=== PATIENT | male | born 2000 | race Caucasian/White ===

== ENCOUNTER 2025-07-06 18:33 | Emergency (ER) | payer OTHER, SELFPAY ==
[2025-07-06 18:52] VITALS: BP 175/67; PULSE 118; RESP 20; TEMP 37.7; O2SAT 95; BMI 37.9
--- NOTE | 2025-07-06 19:00 | ED_ITS ---
HPI - General Adult General Chief complaint: Nausea/Vomiting/Diarrhea Stated complaint: abdn pain, vomiting feverish Time Seen by Provider: 07/06/25 21:41 Source: patient Mode of arrival: ambulatory Limitations: no limitations History of Present Illness ED Provider: Dr. Ellie Voss HPI narrative: Patient comes to the emergency room complaining of chills, subjective fever, nausea vomiting, Headache, mild abdominal discomfort, and diffuse arthralgias and myalgias. Patient states that his symptoms started a proximally 2-3 days ago, gradually getting worse. Related Data Previous Rx's ?Medication ?Instructions ?Recorded ibuprofen 600 mg tablet 600 mg PO TID PRN fever or p ain 07/06/25 #30 tabs Allergies Allergy/AdvReac Type Severity Reaction Status Date / Time No Known Allergies Allergy Verified 07/06/25 18:55 Review of Systems 2 Review of Systems: Constitutional : No Weight loss, complaining of fever and chills,No Night Sweats, complaining of fatigue and generalized malaise ENT/Mouth : No Hearing loss, No Ear Pain, No Nasal Congestion, No Sinus Pain, No Hoarseness, No sore throat, No Rhinorrhea, No Swallowing Difficulty Eyes: No Eye Pain, No Swelling, No Redness, No Foreign Body, No Discharge, No Vision Changes Cardiovascular : No Chest Pain, No SOB, No Dyspnea on Exertion, No Orthopnea, No Edema, No Palpitations Respiratory : No Cough, No Sputum, No Wheezing, No Smoke Exposure, No Dyspnea Gastrointestinal : No Nausea, No Vomiting, No Diarrhea, No Constipation, No abdominal Pain, No Hematochezia, No Melena Genitourinary : no irregular bleeding, No Dysuria, No Urinary Frequency, No Hematuria, No Urinary Incontinence, No Urgency, No Flank Pain, No Urinary Flow Changes, No Hesitancy Musculoskeletal : No joint pain, no joint swelling, complaining of diffuse myalgias and arthralgias Skin : No Skin Lesions, No rash Neuro : No Weakness, No Numbness, No Paresthesias, No Loss of Consciousness, No Dizziness, complaining of Headache Psych : No Anxiety/Panic, No Depression, No SI/HI/AH/VH, No Social Issues, Heme/Lymph: No Bruising, No Bleeding,No Lymphadenopathy Endocrine : No Polyuria, No Polydipsia, No Temperature Intolerance PENDING SALE TO [facility] Social History Social History Advance Directives: No Advance Directives Information Provided: Yes Advance Directives on File: No Physical Exam ED Exam Exam: Appearance: Alert. Oriented X3. No acute distress. well-appearing Eyes: Pupils equal, round and reactive to light. ENT: Pharynx normal. Neck: Normal inspection. Neck supple. No lymph nodes noted. No crepitus CVS: Normal heart rate and rhythm. Pulses normal. Normal S1 and S2 Respiratory: No respiratory distress. Breath sounds normal. No Wheezing. No rales Abdomen: Soft and nontender. No rigidity. No distention. Skin: Skin warm and dry. Normal skin color. Normal skin turgor. Extremities: No lower extremity edema. No Lacerations. No Rash Neuro: Oriented X 3. No motor deficit. No sensory deficit. Moving all extremities. No slurred speech. CN 2 through 12 grossly intact Psych: calm, cooperative, normal affect Vital Signs: Vital Signs - 24 hr 07/06/25 18:52 Temperature 99.8 F Pulse Rate 118 H Respiratory Rate 20 Blood Pressure 175/67 H Pulse Oximetry 95 Oxygen Delivery Method Room Air BMI result Body Mass Index 37.9 Course Course Course Narrative: This is a rapid medical exam performed by Justen Calvillo NP: Additional HPI, ROS, PE not included below will be deferred to primary provider. Patient is a 24y/o M presenting with complaint of epigastric pain, nausea, vomiting and subjective fever x 2 days. Plan: labs, viral serology Medical Decision Making Medical Decision Making [facility] Narrative: my interpretation of labs: No significant abnormality in patient's hematology and chemistry negative, serology negative for influenza but positive for COVID- 19 I discussed with the patient the risks versus benefits of antiviral medication for COVID-19, patient decided not to take it. Patient will be treated symptomatically with Zofran and ibuprofen. Differential Diagnosis Differential Diagnoses: The differential diagnosis associated with the presentation includes ( As above) Lab Data [facility] Lab Attestation statement: I reviewed the patient's lab results. 07/06/25 19:14 07/06/25 19:14 Labs: Lab Results 07/06/25 Range/Units 19:14 WBC 6.6 (4.8-10.8) X10*3/uL RBC 5.11 (4.60-5.80) X10*6/uL Hgb 14.9 (14.0-18.0) g/dl Hct 44.2 (42.0-52.0) % MCV 86.5 (80.0-98.0) fL MCH 29.2 (27.0-33.0) pg MCHC 33.7 (31.0-36.0) g/dl RDW 12.8 (11.0-16.0) % Plt Count 280 (160-400) X10*3/uL MPV 8.5 L (9.4-12.4) fL Immature Gran % (Auto) 0.3 (0.0-0.4) % Neut % (Auto) 68.7 (45-73) % Lymph % (Auto) 14.3 L (20-40) % [place] % (Auto) 15.5 H (2-11) % Eos % (Auto) 0.6 (0-4) % Baso % (Auto) 0.6 (0-2) % Lymph # (Auto) 1.0 L (1.2-4.9) X10*3/uL [place] # (Auto) 1.0 (0.1-1.2) X10*3/uL Eos # (Auto) 0.0 (0.0-0.4) X10*3/uL Baso # (Auto) 0.0 (0.0-0.2) X10*3/uL Abs Immat Gran (auto) 0.02 (0.00-0.03) X10*3/uL Absolute Neuts (auto) 4.6 (2.0-8.3) x10*3/uL Absolute Nucleated RBC 0.000 (0.0-0.012) X10*3/uL Nucleated RBC % (auto) 0.0 (0.0-0.2) /100WBC Sodium 137 (135-145) mmol/L Potassium 4.6 (3.3-5.1) mmol/L Chloride 107 (96-108) mmol/L Carbon Dioxide 24 (22-29) mmol/L Anion Gap 11 L (12-20) BUN 10 (9-16) mg/dL Creatinine 1.00 (0.5-1.4) mg/dL Estim Creat Clear Calc 130.3 Estimated GFR > 60 Random Glucose 102 (60-115) mg/dL Calcium 9.6 (8.4-10.2) mg/dL Total Bilirubin 0.5 (0.0-1.0) mg/dL AST 23 (5-37) U/L ALT 37 (0-40) U/L Alkaline Phosphatase 53 (39-117) U/L Total Protein 7.7 (6.5-8.0) g/dL Albumin 5.1 H (3.5-5.0) g/dL Lipase 21 (8-78) U/L COVID-19 (NADINE) Positive A (Negative) COVID-19 Clin Com See Note Influenza Type A (TREE) Negative (Negative) Influenza A & B Note See Note Discharge Plan Discharge Clinical Impression: COVID-19 Patient Disposition: Home, Self-Care Instructions: COVID-19 (Coronavirus Disease 2019) (ED) Additional Instructions: Your medications were sent to [facility] in [address] Please follow-up with your primary care physician tomorrow. If you have any worsening or new symptoms, please return to the emergency room or call 911 Prescriptions: New ibuprofen 600 mg tablet 600 mg PO TID PRN (Reason: fever or pain) Qty: 30 0RF Stand Alone Forms: Work/School Release Print Language: Tuvaluan
[2025-07-06 19:20] LABS: MANUAL DIFF FLAG NO
[2025-07-06 19:37] LABS: Alanine Aminotransferase 37 U/L (0-40); Albumin Level 5.1 g/dL (3.5-5.0); Alkaline Phosphatase 53 U/L (39-117); Anion Gap 11 (12-20); Aspartate Amino Transferase 23 U/L (5-37); Blood Urea Nitrogen 10 mg/dL (9-16); Calcium 9.6 mg/dL (8.4-10.2); Carbon Dioxide 24 mmol/L (22-29); Chloride 107 mmol/L (96-108); Creatinine Clr Calc Pharmacy 130.3; Estimated Glomerular Filt Rate > 60; Lipase 21 U/L (8-78); Potassium 4.6 mmol/L (3.3-5.1); Sodium 137 mmol/L (135-145); Total Protein 7.7 g/dL (6.5-8.0)
[2025-07-06 19:38] LABS: COVID-19 Test Positive (Negative); Hematocrit 44.2 % (42.0-52.0); Hemoglobin 14.9 g/dl (14.0-18.0); IDNOW Serial# 55D5AD1C; Imm Gran Abs Auto 0.02 X10*3/uL (0.00-0.03); Imm Gran Pct Auto 0.3 % (0.0-0.4); Lymphocytes Absolute Auto 1.0 X10*3/uL (1.2-4.9); Mean Corpuscular HGB Conc 33.7 g/dl (31.0-36.0); Mean Corpuscular Hemoglobin 29.2 pg (27.0-33.0); Mean Corpuscular Volume 86.5 fL (80.0-98.0); NRBC Abs Auto 0.000 X10*3/uL (0.0-0.012); NRBC Pct Auto 0.0 /100WBC (0.0-0.2); Platelet Count 280 X10*3/uL (160-400); Red Blood Count 5.11 X10*6/uL (4.60-5.80); White Blood Count 6.6 X10*3/uL (4.8-10.8)
[2025-07-06 19:39] LABS: IDNOW Serial# 58CA691E
[2025-07-06 22:09] VITALS: BP 160/65; PULSE 102; RESP 20; TEMP 37.7; O2SAT 95
[2025-07-06 22:09] LABS: Influenza B2 Negative (Negative)
== END 2025-07-06 22:09 | disposition home or self-care (01) ==
PROVIDERS: Emergency Provider Emergency Medicine
DX: U07.1 COVID-19 (principal); R11.2 Nausea with vomiting, unspecified; R19.7 Diarrhea, unspecified; R10.9 Unspecified abdominal pain; R51.9 Headache, unspecified; M79.10 Myalgia, unspecified site
CPT/HCPCS: 80053; 83690; 85025; 87502; 87635; 99283

== ENCOUNTER 2025-07-29 04:59 | Inpatient (IN) | payer OTHER, SELFPAY ==
[2025-07-29 05:02] VITALS: BP 150/60; PULSE 89; O2SAT 98
--- NOTE | 2025-07-29 05:12 | ED_ITS ---
HPI - Psych General Chief Complaint: Psychiatric Symptoms Stated Complaint: SI w/ plan Time Seen by Provider: 07/29/25 05:02 Source: patient Mode of arrival: ambulatory Limitations: no limitations History of Present Illness ED Provider: Dr. Ellie Voss HPI Narrative: Patient comes to the emergency room via ambulance from [facility]. Patient presented to [facility] stating that he was suicidal. The staff at [facility] told the patient that he needed to be medically cleared 1st and called the ambulance and brought him to emergency room. Patient states that he is struggling with depression, anxiety. Patient states that when he was a child, he was not psychiatric treatment. Patient states that he was achiness bite PTSD, anxiety, depression. Patient states that he has been out of medications for several years. Patient has several life stressors, states that in route to the hospital he was considering jumping of the ambulance to . However, patient states that the only thing that keeps him from not hurting himself, is that he does not want to hurt others if he dies. Patient denies HI. Related Data Home Medications ?Medication ?Instructions ?Recorded ?Confirmed No Known Home Meds 07/29/25 07/29/25 Allergies Allergy/AdvReac Type Severity Reaction Status Date / Time No Known Allergies Allergy Verified 07/29/25 05:30 Review of Systems 2 Review of Systems: Constitutional : No Weight loss, No Fever, No Chills, No Night Sweats, No Fatigue, No Malaise ENT/Mouth : No Hearing loss, No Ear Pain, No Nasal Congestion, No Sinus Pain, No Hoarseness, No sore throat, No Rhinorrhea, No Swallowing Difficulty Eyes: No Eye Pain, No Swelling, No Redness, No Foreign Body, No Discharge, No Vision Changes Cardiovascular : No Chest Pain, No SOB, No Dyspnea on Exertion, No Orthopnea, No Edema, No Palpitations Respiratory : No Cough, No Sputum, No Wheezing, No Smoke Exposure, No Dyspnea Gastrointestinal : No Nausea, No Vomiting, No Diarrhea, No Constipation, No abdominal Pain, No Hematochezia, No Melena Genitourinary : no irregular bleeding, No Dysuria, No Urinary Frequency, No Hematuria, No Urinary Incontinence, No Urgency, No Flank Pain, No Urinary Flow Changes, No Hesitancy Musculoskeletal : No joint pain, No Myalgias, No Joint Swelling Skin : No Skin Lesions, No rash Neuro : No Weakness, No Numbness, No Paresthesias, No Loss of Consciousness, No Dizziness, No Headache Psych : Complaining of anxiety, depression, PTSD, SI, no HI Heme/Lymph: No Bruising, No Bleeding,No Lymphadenopathy Endocrine : No Polyuria, No Polydipsia, No Temperature Intolerance [facility] Past Medical History Medical History (Updated 07/29/25 @ 05:17 by Ellie Voss MD) Chronic post-traumatic stress disorder (PTSD) Anxiety and depression Social History Social History Smoked in Last 30 Days: Yes Use of substances other than those prescribed or required for medical reasons: Yes Substance Use Type: Marijuana Advance Directives: No Advance Directives Information Provided: Yes Physical Exam 2 Exam: Exam: Appearance: Alert. Oriented X3. No acute distress. Eyes: Pupils equal, round and reactive to light. ENT: Pharynx normal. Neck: Normal inspection. Neck supple. No lymph nodes noted. No crepitus CVS: Normal heart rate and rhythm. Pulses normal. Normal S1 and S2 Respiratory: No respiratory distress. Breath sounds normal. No Wheezing. No rales Abdomen: Soft and nontender. No rigidity. No distention. Skin: Skin warm and dry. Normal skin color. Normal skin turgor. Extremities: No lower extremity edema. No Lacerations. No Rash Neuro: Oriented X 3. No motor deficit. No sensory deficit. Moving all extremities. No slurred speech. CN 2 through 12 grossly intact Psych: calm, cooperative, tearful Vital Signs: Vital Signs: Last Vital Signs Temp 98.3 F 07/30/25 06:28 Pulse 56 07/30/25 06:28 Resp 20 07/30/25 06:28 BP 144/76 H 07/30/25 06:28 Pulse Ox 100 07/30/25 06:28 O2 Del Method Room Air 07/30/25 06:28 BMI result Body Mass Index 42.4 Course Course Course Narrative: All of patient's labs pending Care team consult pending Physician observation started at 05:16 Patient is on a section 12 Time: 15:33 Date: 07/29/25 Provider: Billy Doty MD Patient in physician observation for psychiatric evaluation.? Patient was evaluated by the CARE team . The patient meets inpatient level of care criteria and will be kept emergency department until appropriate bed can be found. Will continue to monitor. Time: 05:59 Date: 07/30/25 Provider: Meagan Shankar, DO Patient in physician observation for psychiatric evaluation.? No acute events reported overnight. No current complaints. VS stable.? Patient is in bed search status. Will continue to monitor. Reevaluation(s) Reevaluation #1: admit to inpatient psych end physician observolive Meagan Shankar, DO 07/30/25 1426 Medications Administered Generic Name Dose Route Start Last Admin Trade Name Freq PRN Reason Stop Dose Admin Lorazepam 2 mg 07/29/25 10:18 07/29/25 10:42 Lorazepam 1 Mg Tablet PO 2 mg Q4H PRN Administration Anxiety, agitation Medical Decision Making Differential Diagnosis Differential Diagnoses: The differential diagnosis associated with the presentation includes (Anxiety, depression, PTSD patient) Admission/Observation Consideration of admission/observation: Escalation of care including admission/observation considered (Patient waiting to be seen by the care team, it is possible that patient may need inpatient level of care) Lab Data 07/29/25 05:33 07/29/25 05:33 Labs: Lab Results 07/29/25 07/29/25 Range/Units 05:33 10:22 WBC 7.5 (4.8-10.8) X10*3/uL RBC 5.00 (4.60-5.80) X10*6/uL Hgb 14.6 (14.0-18.0) g/dl Hct 43.5 (42.0-52.0) % MCV 87.0 (80.0-98.0) fL MCH 29.2 (27.0-33.0) pg MCHC 33.6 (31.0-36.0) g/dl RDW 12.4 (11.0-16.0) % Plt Count 336 (160-400) X10*3/uL MPV 8.5 L (9.4-12.4) fL Immature Gran % (Auto) 0.3 (0.0-0.4) % Neut % (Auto) 67.3 (45-73) % Lymph % (Auto) 23.0 (20-40) % [place] % (Auto) 7.8 (2-11) % Eos % (Auto) 1.2 (0-4) % Baso % (Auto) 0.4 (0-2) % Lymph # (Auto) 1.7 (1.2-4.9) X10*3/uL [place] # (Auto) 0.6 (0.1-1.2) X10*3/uL Eos # (Auto) 0.1 (0.0-0.4) X10*3/uL Baso # (Auto) 0.0 (0.0-0.2) X10*3/uL Abs Immat Gran (auto) 0.02 (0.00-0.03) X10*3/uL Absolute Neuts (auto) 5.0 (2.0-8.3) x10*3/uL Absolute Nucleated RBC 0.000 (0.0-0.012) X10*3/uL Nucleated RBC % (auto) 0.0 (0.0-0.2) /100WBC Sodium 142 (135-145) mmol/L Potassium 4.5 (3.3-5.1) mmol/L Chloride 106 (96-108) mmol/L Carbon Dioxide 27 (22-29) mmol/L Anion Gap 14 (12-20) BUN 9 (9-16) mg/dL Creatinine 0.90 (0.5-1.4) mg/dL Estim Creat Clear Calc 148.9 Estimated GFR > 60 Random Glucose 96 (60-115) mg/dL Calcium 9.5 (8.4-10.2) mg/dL Total Bilirubin 0.4 (0.0-1.0) mg/dL Direct Bilirubin 0.2 (0.0-0.5) mg/dL AST 39 H (5-37) U/L ALT 48 H (0-40) U/L Alkaline Phosphatase 55 (39-117) U/L Total Protein 7.7 (6.5-8.0) g/dL Albumin 5.0 (3.5-5.0) g/dL Urine Color Yellow Urine Appearance Clear Urine pH 6.0 (5.0-9.0) Ur Specific [place] 1.020 (1.005-1.025) Urine Protein Negative (Neg-Trace) mg/dL Urine Glucose (UA) Negative (Negative) mg/dL Urine Ketones Negative (Negative) mg/dL Urine Blood Negative (Negative) Urine Nitrite Negative (Negative) Ur Leukocyte Esterase Small (1+) H (Negative) Urine RBC 0-2 (0-2) /HPF Urine WBC 21-50 H (0-5) /HPF Ur Squamous Epith Cells 0-2 (0-2) /HPF Urine Bacteria None Seen (None Seen) Hyaline Casts 0-2 (0-2) /LPF Urine Opiates Screen Not Detected (Not Detect) Ur Buprenorphine Scrn Not Detected (Not Detect) ng/mL Ur Oxycodone Screen Not Detected (Not Detect) ng/mL Urine Methadone Screen Not Detected (Not Detect) ng/mL Urine Fentanyl Screen Not Detected (Not Detect) Ur Barbiturates Screen Not Detected (Not Detect) Ur Phencyclidine Scrn Not Detected (Not Detect) Ur Amphetamines Screen Not Detected (Not Detect) U Benzodiazepines Scrn Not Detected (Not Detect) Urine Cocaine Screen Not Detected (Not Detect) U Marijuana (THC) Screen POSITIVE H (Not Detect) Ethyl Alcohol < 10 mg/dL Critical Care Time Critical Care Time Critical Care Time: Yes Total Critical Care Time: 35 Attestation: I have personally provided critical care time. Time includes review of lab data, radiology results, discussion with consultants, and monitoring for potential decompensation. Intervention performed as documented. Discharge Plan Discharge Clinical Impression: Anxiety with depression, Suicidal ideation Prescriptions: No Action No Known Home Meds Interventions: [place]-Suicide Risk Severity Scale Last Done: 07/29/25 06:12 Print Language: Israeli
[2025-07-29 05:27] VITALS: BP 116/65; PULSE 78; RESP 16; TEMP 36.9; O2SAT 98; BMI 42.4
[2025-07-29 05:37] LABS: Hematocrit 43.5 % (42.0-52.0); Hemoglobin 14.6 g/dl (14.0-18.0); Imm Gran Abs Auto 0.02 X10*3/uL (0.00-0.03); Imm Gran Pct Auto 0.3 % (0.0-0.4); Lymphocytes Absolute Auto 1.7 X10*3/uL (1.2-4.9); MANUAL DIFF FLAG NO; Mean Corpuscular HGB Conc 33.6 g/dl (31.0-36.0); Mean Corpuscular Hemoglobin 29.2 pg (27.0-33.0); Mean Corpuscular Volume 87.0 fL (80.0-98.0); NRBC Abs Auto 0.000 X10*3/uL (0.0-0.012); NRBC Pct Auto 0.0 /100WBC (0.0-0.2); Platelet Count 336 X10*3/uL (160-400); Red Blood Count 5.00 X10*6/uL (4.60-5.80); White Blood Count 7.5 X10*3/uL (4.8-10.8)
[2025-07-29 05:51] LABS: Alanine Aminotransferase 48 U/L (0-40); Albumin Level 5.0 g/dL (3.5-5.0); Alkaline Phosphatase 55 U/L (39-117); Anion Gap 14 (12-20); Aspartate Amino Transferase 39 U/L (5-37); Blood Urea Nitrogen 9 mg/dL (9-16); Calcium 9.5 mg/dL (8.4-10.2); Carbon Dioxide 27 mmol/L (22-29); Chloride 106 mmol/L (96-108); Creatinine Clr Calc Pharmacy 148.9; Estimated Glomerular Filt Rate > 60; Potassium 4.5 mmol/L (3.3-5.1); Sodium 142 mmol/L (135-145); Total Protein 7.7 g/dL (6.5-8.0)
--- NOTE | 2025-07-29 06:27 | PC.NURSE ---
Pt was given food and beverage after chart changer and triage. He remains calm and cooperative. The pt is teary eyed as he converses freely with this RN regarding his presentation and reasoning for his visit. He is vague regarding his childhood trauma that he believes is at the root of his SI. Pt has a sitter present at bedside for continued observation. He has a phone number written down at bedside and was previously requesting to use a phone but one was unable to be located at that time. Phone now available however pt noted to be resting comfortably in stretcher with eyes closed and respirations even and unlabored
[2025-07-29 08:42] VITALS: BP 115/69; PULSE 78; RESP 14; TEMP 36.8; O2SAT 97
--- NOTE | 2025-07-29 08:44 | PC.NURSE ---
This Rn assumed care of patient @ 0700 Patient resting in bed Patient denies pain 1:[address] VSS and up to date Plan of care on going
--- NOTE | 2025-07-29 10:00 | PC.NURSE ---
Pt moved to pod
[2025-07-29 10:43] LABS: Cannabinoid Screen Urine POSITIVE (Not Detect)
[2025-07-29 14:00] VITALS: BP 115/69; PULSE 78; RESP 14; TEMP 36.8
[2025-07-29 18:32] LABS: Appearance Urine Clear; Glucose Urine UA Negative (Negative); PH 6.0 (5.0-9.0); Specific Gravity - Urine 1.020 (1.005-1.025); UMIC TRIGGER UACC YES
[2025-07-29 18:38] LABS: UACC Culture Trigger YES
--- NOTE | 2025-07-30 06:04 | PC.NURSE ---
Pt slept most of the night. 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 Phone made available and pt called out of work. Pt remained calm and cooperative and returned to the bedside where he slept on and off. Shared no complaints. Monitoring is ongoing.
[2025-07-30 06:28] VITALS: BP 144/76; PULSE 56; RESP 20; TEMP 36.8; O2SAT 100
--- NOTE | 2025-07-30 06:56 | PC.NURSE ---
Assumed care, report received. Pt is awake and sitting quiet in his room eating breakfast.
--- NOTE | 2025-07-30 14:43 | PHA.MEDREC ---
Addendum entered by Maria De Jesus Smith RPh 07/30/25 15:08: MED REC REVIEWED BY [facility] Original Note: Pharmacy Consult ? Medication Reconciliation Pharmacy has completed the medication reconciliation. Spoke with pt and he confirmed he takes no prescription medications at this time and takes Ibuprofen 200mg as needed for his joint pain.
--- NOTE | 2025-07-30 14:56 | PC.NURSE ---
Pt has been calm and cooperative. He has showered and eaten his meals. He has spent the rest of his day watching TV and listening to music.
[2025-07-30 20:00] VITALS: BP 128/78; PULSE 58; RESP 16; TEMP 36.4; O2SAT 99
[2025-07-30 21:21] VITALS: BMI 41.7
--- NOTE | 2025-07-31 01:07 | PC.ADMIT ---
Pt is a 24 yo, single, male, admitted on a CV from [facility] ED, for treatment depression/SI. Per crisis assessment, Pt reports SI with thoughts to run into traffic. He reports AH, hearing voices as a result of childhood truama. He reports daily cannabis use and occasional alcohol use. Pt has HX of depression, anxiety and PTSD. Per unit assessment, Pt is A&O X4, calm and cooperative with admission procedure. He endorses passive SI with no plan but denies HI/AV/VH. Skin/safety check was unremarkable, v/s, height and weight documented. Pt signed/ filled some released of information forms, statement of understanding form, contact lists, and menu. He has no PCP, Psychiatrist or Psychotherapist. He reports some anxiety and insomnia, PRNs given. Treatment plans and safety tools initiated but yet to be signed. Pt is on 15 minutes safety check.
[2025-07-31 08:00] VITALS: BP 124/84; PULSE 84; RESP 18; TEMP 36.8; O2SAT 98
[2025-07-31 08:09] LABS: Alanine Aminotransferase 54 U/L (0-40); Albumin Level 5.0 g/dL (3.5-5.0); Alkaline Phosphatase 61 U/L (39-117); Anion Gap 13 (12-20); Aspartate Amino Transferase 28 U/L (5-37); Blood Urea Nitrogen 13 mg/dL (9-16); Calcium 9.5 mg/dL (8.4-10.2); Carbon Dioxide 27 mmol/L (22-29); Chloride 106 mmol/L (96-108); Cholesterol 143 mg/dL (<200); Creatinine Clr Calc Pharmacy 136.8; Estimated Glomerular Filt Rate > 60; HDL Cholesterol 36 mg/dL (>40); Potassium 4.3 mmol/L (3.3-5.1); Sodium 142 mmol/L (135-145); Total Protein 7.7 g/dL (6.5-8.0); Triglycerides 171 mg/dL (<150)
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
--- NOTE | 2025-07-31 09:47 | P.CONHOSP_ITS ---
History of Present Illness Data of Consult Service Date: 07/31/25 Primary Care Provider: None Physician HPI Reason for consult: Medical consult 24-year-old male with a past medical history of anxiety and depression, PTSD presented to the ED from [facility] with suicide ideation. Initial blood work revealed no leukocytosis or anemia. No electrolyte imbalances, no evidence of renal or liver dysfunction. A1c within normal limits. Urine with a trace of leukocyte esterase nits, denies any dysuria. U tox positive for marijuana, no alcohol. On exam he has no concerns. Review of Systems 2 Review of Systems: Denies any shortness of breath, chest pain, headaches, dysuria, abdominal pain or discomfort, nausea, vomiting or diarrhea. Denies fever or chills. [facility] Medical History (Updated 07/29/25 @ 05:17 by Ellie Voss MD) Chronic post-traumatic stress disorder (PTSD) Anxiety and depression Social History Household Members: Spouse and Adopted Family Housing: Apartment Do you presently have visiting nurse or other home services: No Patient Tobacco Use Status: Current someday Tobacco user Tobacco use type: Cigarette Smoked in Last 30 Days: No e-Cigarette/Vaping Use: Currently Using Patient Interested in Nicotine Replacement: No Patient Given Instructions on How to Stop Smoking: No Second Hand Smoke Exposure: No Use of substances other than those prescribed or required for medical reasons: Yes Substance Use Type: Marijuana Currently Displaying Signs/Symptoms of Drug Intoxication Withdrawal: No Have you been hit, kicked, punched, or otherwise hurt by someone within the past year? If so, by whom?: No Do you feel safe in your current relationship?: Yes Is there a partner from a previous relationship who is making you feel unsafe now?: No Are you made to feel afraid or neglected: No Advance Directives: No Advance Directives Information Provided: Yes Do you have thoughts of harming others: None Do you have a plan to hurt others: No Plan Recently lost weight without trying: No Eating poorly because of decreased appetite: Yes Nutrition Risks: No Nutritional Risk Poor oral hygiene: No service: No Sexual orientation: Straight/Heterosexual Meds Allergies Allergy/AdvReac Type Severity Reaction Status Date / Time No Known Allergies Allergy Verified 07/29/25 05:30 Active Medications: Current Medications Acetaminophen (Acetaminophen 325 Mg Tablet) 650 mg PO Q6H PRN PRN Reason: Headache/Pain, Scale 1-10 Al Hydroxide/Mg Hydroxide (Magnesium Hydrox/Alum Hydrox 30 Ml Oral.Susp) 30 ml PO Q6H PRN PRN Reason: Heartburn/Nausea Hydroxyzine HCl (Hydroxyzine Hcl 25 Mg Tablet) 25 mg PO Q6H PRN PRN Reason: mild anxiety Last Admin: 07/30/25 20:57 Dose: 25 mg Lorazepam (Lorazepam 1 Mg Tablet) 2 mg PO Q4H PRN PRN Reason: Anxiety, agitation Last Admin: 07/29/25 10:42 Dose: 2 mg Magnesium Hydroxide (Milk Of Magnesia 30 Ml Oral.Susp) 30 ml PO DAILY PRN PRN Reason: Constipation Nicotine Polacrilex (Nicotine Polacrilex 2 Mg Gum) 2 mg BUCCAL Q2H PRN PRN Reason: Nicotine Cravings Trazodone HCl (Trazodone Hcl 50 Mg Tablet) 50 mg PO BEDTIME MRX1 PRN PRN Reason: Insomnia Home Medications ?Medication ?Instructions ?Recorded ?Confirmed ?Last Taken ?Type ibuprofen 200 mg tablet 200 mg PO Q6H PRN Joint Pain 07/30/25 07/30/25 Unknown History Physical Exam 2 Vital Signs and Narrative: Vital Signs: Last Vital Signs Temp 97.6 F 07/30/25 20:00 Pulse 58 07/30/25 20:00 Resp 16 07/30/25 20:00 BP 128/78 07/30/25 20:00 Pulse Ox 99 07/30/25 20:00 O2 Del Method Room Air 07/30/25 20:00 BMI result Body Mass Index 41.7 Alert and oriented X3, able to give good history. Neuro: CN II-X11 intact, no deficits, visual acuity intact Cardiac: S1 S2 RRR, No ectopy Pulmonary: lungs clear to auscultation, No increased WOB. Abdominal: BS active in all 4 quadrants, no guarding or tenderness MSK: Strength 5/5 upper and lower extremities : Deferred Extremities: No edema in lower extremities Psych: mood stable, Quiet and cooperative. Skin: Warm and dry, Intact Results Labs 07/29/25 05:33 07/31/25 07:42 Labs: Laboratory Results - last 24 hr 07/31/25 07:42 Anion Gap 13 Estim Creat Clear Calc 136.8 Estimated GFR > 60 Random Glucose 89 Estimat Average Glucose 111 Hemoglobin A1c % 5.5 Calcium 9.5 Total Bilirubin 0.3 AST 28 ALT 54 H Alkaline Phosphatase 61 Total Protein 7.7 Albumin 5.0 Triglycerides 171 H Cholesterol 143 LDL Cholesterol, Calc 73 HDL Cholesterol 36 L Assessment and Plan (1) Anxiety with depression: Status: Acute Plan 24-year-old male with past medical history listed below, presented to the ED with suicidal ideation. Anxiety with depression/SI Treatment per psychiatric team Thank you for allowing me to participate in the care of this patient. Will follow with you, please notify medical provider with any changes in condition or concerns.
[2025-08-01 07:57] VITALS: BP 130/78; PULSE 70; RESP 20; TEMP 36.3; O2SAT 98
--- NOTE | 2025-08-01 09:15 | P.PNPSI_ITS ---
Subjective Subjective Date of Service: 08/01/25 Reason For Visit: Depression SI Subjective Notes: Conditional Voluntary Interim History: Chart reviewed, case discussed w/ team Per team- Pt goes by Vikas attended art grp didn't sleep Pt reports that he's still depressed/anxious, understands that it will take a while for the fluoxetine to take effect. He wants to increase the dose to previously effective dose of 40 mg and I informed him that the dose will be gradually titrated to prevent SE but the titration He endorses SI but states that the ideations are less intense. He again states that this is a chronic issue and reports that he feels that he can keep himself safe b/c he doesn't want to hurt individuals that he cares for. He refers to them as individuals since most of his family is gone or out of contact w/ him. Pt reports feeling uncomfortable on the unit due to trauma hx. It's difficult for him to sleep here due to hypervigilance and his usual sleep schedule around steward/stewardess night. He doesn't feel ready to d/c today since he wants to continue adjusting his meds in a monitored setting. Discussed option for PHP but he states that he couldn't do it around his work schedule. Pt has generally isolated in the sensory room. Medication Compliance: Yes (took prn risperidone and hydryoxyzine last night) Side effects from medications: No Mental Status Exam Mental Status Exam Narrative: Appearance: sitting in sensory room alone. grooming/hygiene fair. good eye contact Attitude: Cooperative Speech: Fluent and wnl in regard to volume, tone, prosody Motor activity: Calm and without any tics, tremors or dyskinesias. Mood: depressed, anxious Affect: appropriate, reactive Thought process: goal directed and without evidence of formal thought disorder Thought content: Endorses SI (chronic issue) but less intense. Denies intent to harm himself. Denies violent ideation. Future oriented, discuss plan to RTW next wk Perception: does not appear to respond to internal stimuli Alert/oriented in all spheres Cognition grossly intact Insight: intact Judgment: intact Diagnostics Vital Signs (24Hr): Vital Signs - 24 hr 08/01/25 07:57 Temperature 97.3 F Pulse Rate 70 Respiratory Rate 20 Blood Pressure 130/78 Pulse Oximetry 98 Oxygen Delivery Method Room Air BMI result Body Mass Index 41.7 Labs 07/29/25 05:33 07/31/25 07:42 Labs: Laboratory Results - last 48 hr 07/31/25 07:42 Sodium 142 Potassium 4.3 Chloride 106 Carbon Dioxide 27 Anion Gap 13 BUN 13 Creatinine 0.97 Estim Creat Clear Calc 136.8 Estimated GFR > 60 Random Glucose 89 Estimat Average Glucose 111 Hemoglobin A1c % 5.5 Calcium 9.5 Total Bilirubin 0.3 AST 28 ALT 54 H Alkaline Phosphatase 61 Total Protein 7.7 Albumin 5.0 Triglycerides 171 H Cholesterol 143 LDL Cholesterol, Calc 73 HDL Cholesterol 36 L Medications Medications Current Medications Acetaminophen (Acetaminophen 325 Mg Tablet) 650 mg PO Q6H PRN PRN Reason: Headache/Pain, Scale 1-10 Al Hydroxide/Mg Hydroxide (Magnesium Hydrox/Alum Hydrox 30 Ml Oral.Susp) 30 ml PO Q6H PRN PRN Reason: Heartburn/Nausea Fluoxetine HCl (Fluoxetine Hcl 10 Mg Capsule) 10 mg PO DAILY ANNETTE Last Admin: 08/01/25 08:41 Dose: 10 mg Hydroxyzine HCl (Hydroxyzine Hcl 25 Mg Tablet) 25 mg PO Q6H PRN PRN Reason: mild anxiety Last Admin: 07/30/25 20:57 Dose: 25 mg Magnesium Hydroxide (Milk Of Magnesia 30 Ml Oral.Susp) 30 ml PO DAILY PRN PRN Reason: Constipation Nicotine Polacrilex (Nicotine Polacrilex 2 Mg Gum) 2 mg BUCCAL Q2H PRN PRN Reason: Nicotine Cravings Risperidone (Risperidone 1 Mg Tablet) 1 mg PO TID PRN PRN Reason: agitation and/or severe anxiety Trazodone HCl (Trazodone Hcl 50 Mg Tablet) 50 mg PO BEDTIME MRX1 PRN PRN Reason: Insomnia Allergies Allergies Allergy/AdvReac Type Severity Reaction Status Date / Time No Known Allergies Allergy Verified 07/29/25 05:30 Assessment & Plan Assessment & Plan (1) Suicidal ideation: Status: Acute Code(s): R45.851 - Suicidal ideations (2) Depressive disorder: Status: Acute Code(s): F32.A - Depression, unspecified (3) Chronic post-traumatic stress disorder (PTSD): Status: Acute Code(s): F43.12 - Post-traumatic stress disorder, chronic Plan Mr. Limon is a 24 yo partnered M with h/o PTSD, depression and anxiety who presented to the [facility] ED due to SI with thoughts to run into traffic. He has experienced significant functional impairment at work and relationship stressors due to untreated anxiety and depression. He endorses chronic SI, previous h/o suicide attempts and self harming behavior. Plan: Admit to M3 for safety and stabilization Legal status: CV Admission medical H&P consult completed by hospitalist, reviewed by t/w Vital signs per unit standard 15 min safety checks Medications: -Will re-start fluoxetine, which helped in the past with anxiety and depression, starting at 10 mg qam. 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 -Ordered risperidone .5 mg tid prn for severe anxiety and/or agitation 08/01: Pt is tolerating the fluoxetine. Utilized prn risperidone .5 mg and hydroxyzine 25 mg last night. He is uncomfortable in inpt psychiatric setting due to significant trauma hx and isn't sleeping well here. Will likely d/c home tomorrow w/ referrals to outpt MH providers. Patient educated on: diagnosis, medication risk/benefits and therapeutic strategies Informed Consent: understands Reason for continued inpatient stay Substantial Risk for: med/psych decompensation Time Spent With Patient Time: Total time managing care of this patient today 30____ minutes.
[2025-08-01 20:21] VITALS: BP 95/49; PULSE 55; RESP 16; TEMP 36.8; O2SAT 96
[2025-08-02 07:27] VITALS: BP 127/80; PULSE 80; RESP 16; TEMP 36.7; O2SAT 98
--- NOTE | 2025-08-02 15:48 | PM.PSYDC ---
DS: Providers Provider Date of Service: 08/02/25 Date of admission: 07/30/25 14:34 Date of discharge: 08/02/25 Primary care physician: Lashawn Physician Attending physician on admission: Gisela Shanks Attending physician on discharge: Gisela Shanks DS: Diagnosis Discharge Diagnosis (1) Suicidal ideation: Status: Acute (2) Depressive disorder: Status: Acute (3) Chronic post-traumatic stress disorder (PTSD): Status: Acute DS: Medications Discharge Medications Home Medications: Previous Rx's ?Medication ?Instructions ?Recorded fluoxetine 20 mg capsule 20 mg PO DAILY 30 days #30 caps 08/02/25 hydroxyzine HCl 25 mg tablet See Rx Instructions .Route 08/02/25 .COMPLEX PRN mild anxiety 30 days #120 tabs risperidone 1 mg tablet See Rx Instructions .Route 08/02/25 .COMPLEX PRN agitation and/or severe anxiety 30 days #60 tabs Mental Status Exam Mental Status Exam Narrative: Appearance: grooming/hygiene fair. good eye contact Attitude: Cooperative Speech: Fluent and wnl in regard to volume, tone, prosody Motor activity: Calm and without any tics, tremors or dyskinesias. Mood: depressed, anxious but improved overall Affect: appropriate, reactive Thought process: goal directed and without evidence of formal thought disorder Thought content: Endorses SI (chronic issue) but less intense. Denies intent to harm himself and feels like he can keep himself safe. Denies violent ideation. Future oriented, discussed plan to return to work next wk. Perception: denies AH/VH. does not appear to respond to internal stimuli Alert/oriented in all spheres Cognition grossly intact Insight: intact Judgment: intact Data Data Completed and Pending Completed studies during hospitalization [Text1]: 07/29/25 10:22 Urine clean catch - Clean Catch Midstream Urine Culture - Final Viridans streptococcus group Corynebacterium species DS: Summary Hospital Course Hospital Course: Mr. Limon is a 24 yo partnered M with h/o PTSD, depression and anxiety who presented to [place] [facility] due to SI with thoughts to run into traffic. He has experienced significant functional impairment at work and relationship stressors due to untreated anxiety and depression. He endorses chronic SI, previous h/o suicide attempts and self harming behavior. Initial tx plan: Admit to [facility]3 for safety and stabilization Legal status: CV Admission medical H&P consult completed by hospitalist, reviewed by t/w Vital signs per unit standard 15 min safety checks Medications: -Will re-start fluoxetine, which helped in the past with anxiety and depression, starting at 10 mg qam. 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 -Ordered risperidone .5 mg tid prn for severe anxiety and/or agitation 08/01: Pt endorses SI but states that the ideations are less intense. He again states that this is a chronic issue and reports that he feels that he can keep himself safe b/c he doesn't want to hurt individuals that he cares for. He refers to them as individuals since most of his family is gone or out of contact w/ him. Pt reports feeling uncomfortable on the unit due to trauma hx. It's difficult for him to sleep here due to hypervigilance and his usual sleep schedule around awake overnight counselor work. Discussed option for PHP but he states that he couldn't do it around his work schedule. Pt has generally isolated in the sensory room. 08/02: Pt felt safe w/ plan to discharge and return home. Time Spent with Patient Time attestation: Total time managing care of this patient today ____ minutes. Discharge Plan Discharge Anticipated Discharge Date/Time: 08/02/25 10:35 Patient Disposition: Home, Self-Care Discharge Diagnosis: Depressive disorder SI PTSD Referrals: Therapy & Psychiatry [Other] - 1 Week Referral Note: You can present to the clinic above, Wednesday through Wednesday between the hours of 10am and 12pm, in order to obtain outpatient mental health providers. Please bring your insurance card and ID with you. Access Navigation [Other] - 1 Week Referral Note: *You have been referred to [facility] Access Navigation. They will reach out to you and provide you with support and resources to obtain outpatient providers in the community. Physician,None [Primary Care Provider, Medical] - 1 Week Discharge Medications: New hydroxyzine HCl 25 mg Tablet See Rx Instructions .ROUTE .COMPLEX PRN (Reason: mild anxiety) 30 Days Qty: 120 0RF Rx Instructions: Take 1-2 caps po bid prn for anxiety and/or nausea fluoxetine 20 mg capsule 20 mg PO DAILY 30 Days Qty: 30 0RF risperidone 1 mg Tablet See Rx Instructions .ROUTE .COMPLEX PRN (Reason: agitation and/or severe anxiety) 30 Days Qty: 60 0RF Rx Instructions: Take 1/2 to 1 tab po bid prn for agitation and/or severe anxiety Discontinued ibuprofen 200 mg Tablet 200 mg PO Q6H PRN (Reason: Joint Pain) Discharge Orders: Discharge Order (Routine); Ordered 08/02/25 Ordered By: Gisela Shanks Diet: Regular diet Activity on Discharge: No Restrictions Stand Alone Forms: Patient Portal Discharge page, Community Support Print Language: Latvian Care Plan Goals: Maintain safe behaviors Practice coping skills Take medications as prescribed Maintain regular follow-ups with your outpatient providers Health Concerns: depression, SI Plan of Treatment: Follow up with your psychiatric provider, PCP and other outpatient providers Take your medication as prescribed Assessment: Risk assessment at the time of discharge: Patient was interviewed on the day of discharge. He endorses chronic SI but denies current plan or intent. He is future oriented. He denies violent ideation. Pt has improved insight and judgment and plans to continue treatment Pt is not at high risk of harm to self or others and has a safety plan that includes presenting to the closest ER or calling 911 if feeling unsafe. Pt has been observed closely by unit staff and has not engaged in any behaviors that suggest dangerous to self or others and has demonstrated appropriate bheaviors and impulse control. Discharge Date/Time: 08/02/25 11:15
== END 2025-08-02 11:15 | disposition home or self-care (01) | DRG 881 ==
LOC: HO.ED 09:32 → HO.PADLT16 07-30 15:13
PROVIDERS: Admitting Provider Psychiatry & Neurology Psychiatry; Emergency Provider Emergency Medicine; Visit Provider Psychiatry & Neurology Psychiatry
DX: F32.A Depression, unspecified (principal); R45.851 Suicidal ideations; F41.8 Other specified anxiety disorders; F43.12 Post-traumatic stress disorder, chronic; F17.210 Nicotine dependence, cigarettes, uncomplicated; Z71.6 Tobacco abuse counseling; Z79.899 Other long term (current) drug therapy
CPT/HCPCS: 36415; 80048; 80053; 80061; 80076; 80307; 81001; 83036; 85025; 87086; 99285; S9485

== ENCOUNTER → 2025-07-30 14:34 | Outpatient (BNV) | payer OTHER, SELFPAY | PROVIDERS: Admitting Provider Psychiatry & Neurology Psychiatry; Emergency Provider Emergency Medicine; Visit Provider Nurse Practitioner Family | DX: F41.8 Other specified anxiety disorders (principal) | CPT/HCPCS: 99221 ==

== ENCOUNTER → 2025-07-30 14:34 | Outpatient (BNV) | payer OTHER, SELFPAY | PROVIDERS: Admitting Provider Psychiatry & Neurology Psychiatry; Emergency Provider Emergency Medicine; Visit Provider Psychiatry & Neurology Psychiatry | DX: F32.2 Major depressive disorder, single episode, severe without psychotic features (principal); R45.851 Suicidal ideations; F43.12 Post-traumatic stress disorder, chronic | CPT/HCPCS: 99232 ==